=== PATIENT | male | born 1965 | race Caucasian/White ===

== ENCOUNTER 2016-10-02 18:49 | Emergency (ER) | payer BC ==
[~2016-10-02] VITALS: Ht 167.6 cm; Wt 87.1 kg
[~2016-10-02 18:49] MED LIST: MOTRIN600 MG PO; NOHOMEMEDS; PERCOCET 5/31 TABLET PO; PERCODAN TABLE1 EACH PO; PREDNISONE10 M1 PO; SKELAXIN800 MG PO; TRAMADOL HCL50 MG PO; ULTRAM50 MG PO
[2016-10-02 19:09] LABS: HEMATOCRIT 50.1 % (38.0-50.0); MCH 27.9 PG (29.0-34.0); MCHC 33.1 G/DL (30.0-36.0); MCV 84.1 FL (86-99); MEAN PLAT.VOLUME 10.3 uM^3 (9.0-12.4); PLATELET COUNT 306 K/uL (156-360); RBC DIS.WIDTH-CV 13.6 % (11.8-14.6); RBC DIS.WIDTH-SD 42.2 % (39-53); RED BLOOD COUNT 5.96 M/uL (4.00-5.50); WHITE BLOOD COUNT 10.3 K/uL (4.1-10.2)
[2016-10-02 19:19] LABS: CHLORIDE 106 mEq/L (99-109); POTASSIUM 4.3 mEq/L (3.7-5.4); SODIUM 139 mEq/L (136-147)
[2016-10-02 19:21] LABS: GLUCOSE 79 mg/dL (70-99)
[2016-10-02 19:23] LABS: ANION GAP 13 MEQ/L (2-14)
[2016-10-02 19:25] LABS: GFR ESTIMATE (CALCULATED) > 59 mL/min/
[2016-10-02 19:26] LABS: UREA NITROGEN (BUN) 12 mg/dL (9-23)
[2016-10-02 19:33] LABS: TROP-I INTERPRETATION NEGATIVE; TROPONIN-I < 0.01 ng/mL (0.0-0.30)
[2016-10-02 22:47] LABS: INFLUENZA A VIRAL ANTIGEN NEGATIVE; INFLUENZA B VIRAL ANTIGEN NEGATIVE
[2016-10-02] MEDS ORDERED: HYCODAN SYRUP480 ML PO (22:53)
[2016-10-02] MEDS ORDERED: PREDNISONE20 MG PO (22:53)
[2016-10-02] MEDS ORDERED: PROAIR HFA8.5 GM IH (22:53)
[2016-10-02 23:05] VITALS: BP 130/77
== END 2016-10-02 23:07 | disposition home or self-care (01) ==
LOC: EME 18:49
PROVIDERS: Emergency Medicine
DX: J20.8 Acute bronchitis due to other specified organisms (principal); I10 Essential (primary) hypertension
CPT/HCPCS: 71020; 80048; 84484; 85027; 87502; 93005; 94640; 99281; 99284; J1100; J1885

== ENCOUNTER 2017-10-24 12:56 | Emergency (ER) | payer OTHER ==
[~2017-10-24] VITALS: Ht 167.6 cm; Wt 88.8 kg
[~2017-10-24 12:56] MED LIST changes: +HYCODAN SYRUP480 ML PO; +PREDNISONE20 MG PO; +PROAIR HFA8.5 GM IH
[2017-10-24 14:39] LABS: HEMATOCRIT 48.5 % (38.0-50.0); HEMOGLOBIN 16.6 G/DL (12.5-16.6); MCH 28.8 PG (29.0-34.0); MCHC 34.2 G/DL (30.0-36.0); MCV 84.1 FL (86-99); PLATELET COUNT 252 K/uL (156-360); RBC DIS.WIDTH-CV 13.7 % (11.8-14.6); RBC DIS.WIDTH-SD 41.8 % (39-53); RED BLOOD COUNT 5.77 M/uL (4.00-5.50); WHITE BLOOD COUNT 11.5 K/uL (4.1-10.2)
[2017-10-24 14:50] LABS: CHLORIDE 103 mEq/L (99-109); POTASSIUM 4.2 mEq/L (3.7-5.4); SODIUM 137 mEq/L (136-147)
[2017-10-24 14:51] LABS: GLUCOSE 110 mg/dL (70-99)
[2017-10-24 14:55] LABS: CREATININE 0.9 mg/dL (0.6-1.3); GFR ESTIMATE (CALCULATED) > 59 mL/min/ (58.99-99999)
[2017-10-24 14:56] LABS: UREA NITROGEN (BUN) 16 mg/dL (9-23)
[2017-10-24 15:00] LABS: TROP-I INTERPRETATION NEGATIVE; TROPONIN-I < 0.01 ng/mL (0.0-0.30)
[2017-10-24 18:30] VITALS: BP 140/90
[2017-10-24] MEDS ORDERED: ZITHROMAX Z-PA250 MG PO (19:28)
== END 2017-10-24 20:09 | disposition home or self-care (01) ==
LOC: EME 12:56
DX: R07.89 Other chest pain (principal); J03.90 Acute tonsillitis, unspecified; R22.41 Localized swelling, mass and lump, right lower limb; I10 Essential (primary) hypertension; E78.5 Hyperlipidemia, unspecified; Z87.442 Personal history of urinary calculi
CPT/HCPCS: 71046; 71275; 80048; 84484; 85027; 93005; 93971; 99281; 99285; J7030